=== PATIENT | female | born 1945 | race Caucasian/White ===

== ENCOUNTER 2016-09-11 17:29 | Observation (INO) | payer BC ==
--- NOTE | ~2016-09-11 | HP ---
History And Physical [facility] [id number] [place]. [address] NAME: GOMEZ SANTAMARIA : 43 STATUS : ADM Anna PAT#: [id number] AGE: 70 ADM/REG DATE : 09/11/16 MR#: [id number] REPORT SERV DATE: 09/11/16 DICTATED BY: DATE: REPORT STATUS : Draft TRANSCRIBED BY: MODL DATE: 09/11/16 DATE OF ADMISSION: 09/11/2016 CHIEF COMPLAINT/REASON FOR ADMISSION: Chest pain. HISTORY OF PRESENT ILLNESS: Ms Gomez Santamaria is a very pleasant 70-year-old female who was transferred from [facility] with chest pain. The patient stated that she felt sick, weak, and dizzy on Saturday evening when she was at [employer]ology. She also complained of a heavy pressure-like feeling on her chest of 9/10 in intensity. She states that she went to bed that night, and then Saturday, she spent most of the day in the bed. She tried to get up and do things today earlier when she had an episode where she felt like she might pass out, where her legs became weak. She has had chest pain on and off today. She describes it as a heaviness that radiates across her chest. She states that she vomited twice before coming to the hospital once on Saturday and once last night and had a cramping sensation. She states that her symptoms are better with rest and when she was given nitroglycerin at the [facility], she had improvement of her symptoms. PAST MEDICAL HISTORY: 1. Diabetes mellitus. 2. History of cervical cancer. 3. Hypertension. SOCIAL HISTORY: The patient is . She has a daughter. She does not smoke, drink, or use extracurricular drugs. FAMILY HISTORY: Significant for mom with dropsy and a brother with lung cancer. MEDICATIONS: The patient's outpatient medications are not clear, but are at least: 1. Metformin 500 mg two tablets p.o. twice per day. 2. Glipizide possibly 10 mg. 3. Insulin p.r.n. 4. Lisinopril 20 mg p.o. daily. 5. Omeprazole 20 mg p.o. daily. REVIEW OF SYSTEMS: All systems reviewed and are negative except for dictated in HPI. PHYSICAL EXAMINATION: VITAL SIGNS: On arrival to the outside hospital, the patient's temperature was 98, blood pressure 131/62, pulse of 58, respirations 18, and oxygen saturation 100% on room air. GENERAL: Ms Santamaria is a well-groomed, 70-year-old female. She is currently in no distress. NECK: No jugular venous distention. No carotid bruits. HEART: Regular rate and rhythm. Normal S1 and S2. I could not appreciate murmurs, rubs, or gallops. LUNGS: Clear to auscultation in all alvarez. ABDOMEN: Obese and nontender. I could not auscultate renal bruits. History And Physical [address] [place]. [address] NAME: GOMEZ SANTAMARIA : 43 STATUS : ADM Anna PAT#: [id number] AGE: 70 ADM/REG DATE : 09/11/16 MR#: [id number] REPORT SERV DATE: 09/11/16 DICTATED BY: DATE: REPORT STATUS : Draft TRANSCRIBED BY: MODL DATE: 09/11/16 EXTREMITIES: Warm and well perfused. There are no pitting edema. Femoral pulses are +2 bilaterally. There are no femoral bruits present. DATA: No laboratory data is available yet from our campus. However, the [facility] noted a troponin of 0, a CK of 34, an INR of 1, glucose 224, AST 15, ALT 13, and alkaline phosphatase 77. A chest x-ray showed no evidence of acute cardiopulmonary abnormality. CBC documented a hemoglobin of 13.9, hematocrit of 42.5, and platelet count of 239. Potassium was 4, sodium 136, BUN 14, and creatinine 0.8. IMPRESSION, REPORT, AND PLAN: 1. Chest pain. 2. Hypertension, well controlled. 3. Diabetes mellitus. 4. Gastroesophageal reflux disease. RECOMMENDATIONS: 1. We will rule out acute coronary syndrome via serial cardiac enzymes and EKGs. 2. If the patient does not have evidence of acute coronary syndrome, we will arrange for myocardial perfusion stress testing in the a.m. to rule out ischemia. I do note that the patient had a previous stress test in January of 2016, which demonstrated no ischemia. 3. Check hemoglobin A1c. 4. Insulin sliding scale as needed. 5. Additional recommendations pending clinical course. KRISTEN/JULIAN Kaylene Medina M.D. / [id number] CC: Kaylene Medina M.D.
[2016-09-11] MEDS ORDERED: FORTAMET1000 MG PO (19:01)
[2016-09-11] MEDS ORDERED: NEUR300 PO ×2 (19:01)
[2016-09-11] MEDS ORDERED: GLUCOTRO10 PO (19:02)
[2016-09-11] MEDS ORDERED: BAYER BACK AND BODY PO (19:02)
[2016-09-11] MEDS ORDERED: PRILO PO (19:02)
[2016-09-11] MEDS ORDERED: 8 HOUR650 MG PO (19:03)
[2016-09-11] MEDS ORDERED: LANTUS SC (19:05)
[2016-09-11] MEDS ORDERED: VITAMIN B-121000 MC1 SL (19:05)
[2016-09-11] MEDS ORDERED: VITAMIN D1000 UNI1 PO (19:06)
[2016-09-11] MEDS ORDERED: VITE PO (19:06)
[2016-09-11] MEDS ORDERED: FISH-EPA1000 MG PO (19:06)
[2016-09-11 20:03] LABS: BASOPHILS 0.3 %; BASOPHILS ABSOLUTE 0.02 10/3/uL (0.0-0.16); EOSINOPHILS 1.1 %; EOSINOPHILS ABSOLUTE 0.08 10/3/uL (0.0-0.53); HEMOGLOBIN 13.2 g/dL (12.0-16.0); IMMATURE GRANULOCYTES 0.1 %; IMMATURE GRANULOCYTES ABSOLUTE 0.01 10/3/uL (0.0-0.11); LYMPHOCYTES 23.8 %; LYMPHOCYTES ABSOLUTE 1.71 10/3/uL (0.67-4.30); MEAN CORPUS HGB CONC 33.3 g/dL (32.0-36.0); MEAN CORPUSCULAR HEMOGLOB 28.7 pg (26.0-34.0); MEAN CORPUSCULAR VOLUME 86.1 fL (80-100); MEAN PLATELET VOLUME 10.6 fL (9.2-13.0); MONOCYTES 8.3 %; NEUTROPHILS 66.4 %; NEUTROPHILS ABSOLUTE 4.78 10/3/uL (2.02-8.40); PLATELET COUNT 241 10/3/uL (150-400); RBC DISTRIBUTION WIDTH 13.2 % (12.0-16.0); WHITE BLOOD CELLS 7.2 10/3/uL (4.5-10.5)
[2016-09-11 20:04] LABS: HEMATOCRIT 39.6 % (36.0-48.0); MANUAL DIFF NO %
[2016-09-11 20:12] LABS: INTERNATIONAL NORMAL RATI 1.2 UNITS (-); PARTIAL THROMBO TIME 27.2 SEC (22.5-37.2); PROTIME (NOT ORD) 14.6 SEC (12.0-14.5)
[2016-09-11 20:14] LABS: BUN (BLOOD UREA NITROGEN) 14 MG/DL (6-23); CALCIUM, SERUM 8.6 MG/DL (8.5-10.4); CHLORIDE, SERUM 107 MMOL/L (96-112); CO2 (CARBON DIOXIDE) 24 MMOL/L (24-34); CREATININE 0.92 MG/DL (0.55-1.02); GFR AFRICAN AMERICAN 73 ML/MIN (>=60); GFR NON AFRICAN AMERICAN 63 ML/MIN (>=60); GLUCOSE, SERUM 146 MG/DL (60-99); POTASSIUM, SERUM 3.6 MMOL/L (3.5-5.3); SODIUM, SERUM 142 MMOL/L (135-148); TROPONIN I <0.02 NG/ML (<0.05)
[2016-09-12 03:46] LABS: BASOPHILS 0.4 %; BASOPHILS ABSOLUTE 0.02 10/3/uL (0.0-0.16); EOSINOPHILS 0.7 %; EOSINOPHILS ABSOLUTE 0.04 10/3/uL (0.0-0.53); HEMATOCRIT 39.1 % (36.0-48.0); HEMOGLOBIN 12.6 g/dL (12.0-16.0); LYMPHOCYTES ABSOLUTE 1.18 10/3/uL (0.67-4.30); MEAN CORPUS HGB CONC 32.2 g/dL (32.0-36.0); MEAN CORPUSCULAR HEMOGLOB 27.9 pg (26.0-34.0); MEAN CORPUSCULAR VOLUME 86.5 fL (80-100); MEAN PLATELET VOLUME 10.4 fL (9.2-13.0); MONOCYTES 7.5 %; MONOCYTES ABSOLUTE 0.42 10/3/uL (0.21-1.20); NEUTROPHILS 70.4 %; NEUTROPHILS ABSOLUTE 3.95 10/3/uL (2.02-8.40); PLATELET COUNT 226 10/3/uL (150-400); RBC DISTRIBUTION WIDTH 13.2 % (12.0-16.0); RED CELL COUNT 4.52 10/6/uL (4.0-5.6); WHITE BLOOD CELLS 5.6 10/3/uL (4.5-10.5)
[2016-09-12 03:47] LABS: MANUAL DIFF NO %
[2016-09-12 04:09] LABS: CHOL/HDL RATIO(NOT ORDER) 3.3 (0-5); CHOLESTEROL 122 MG/DL (< 200); HDL CHOLESTEROL 37 MG/DL (> 49); LDL CHOLESTEROL 65 MG/DL (< 130); NON-HDL CHOLESTEROL 85 MG/DL (< 160); SGPT(ALT) 67 U/L (5-65); TRIGLYCERIDE 101 MG/DL (< 150); TROPONIN I <0.02 NG/ML (<0.05)
[2016-09-12 07:59] LABS: POTASSIUM, SERUM 4.6 MMOL/L (3.5-5.3)
[2016-09-12 08:50] LABS: TROPONIN I <0.02 NG/ML (<0.05)
[2016-09-12 13:20] LABS: CHOL/HDL RATIO(NOT ORDER) 3.5 (0-5); CHOLESTEROL 126 MG/DL (< 200); HDL CHOLESTEROL 36 MG/DL (> 49); LDL CHOLESTEROL 67 MG/DL (< 130); NON-HDL CHOLESTEROL 90 MG/DL (< 160); TRIGLYCERIDE 115 MG/DL (< 150)
[2016-09-13 04:13] LABS: BUN (BLOOD UREA NITROGEN) 14 MG/DL (6-23); CALCIUM, SERUM 8.1 MG/DL (8.5-10.4); CHLORIDE, SERUM 108 MMOL/L (96-112); CO2 (CARBON DIOXIDE) 26 MMOL/L (24-34); CPK 31 U/L (0-200); CREATININE 0.87 MG/DL (0.55-1.02); GFR AFRICAN AMERICAN 78 ML/MIN (>=60); GFR NON AFRICAN AMERICAN 67 ML/MIN (>=60); POTASSIUM, SERUM 4.1 MMOL/L (3.5-5.3); SODIUM, SERUM 141 MMOL/L (135-148); TROPONIN I <0.02 NG/ML (<0.05)
[2016-09-13 04:16] LABS: GLUCOSE, SERUM 228 MG/DL (60-99)
[2016-09-13] MEDS ORDERED: ASAB PO (08:56)
[2016-09-13] MEDS ORDERED: LIPITOR40 PO (08:56)
[2016-09-13] MEDS ORDERED: COREG3 PO (08:57)
[2016-09-13] MEDS ORDERED: PRIN20 PO (08:58)
[2016-09-13] MEDS ORDERED: NITROSTAT0.4 MG SL (09:06)
== END 2016-09-13 12:01 | disposition home or self-care (01) ==
LOC: CDU2 17:29
PROVIDERS: Internal Medicine; Internal Medicine Cardiovascular Disease
DX: I25.110 Atherosclerotic heart disease of native coronary artery with unstable angina pectoris (principal); E11.9 Type 2 diabetes mellitus without complications; I10 Essential (primary) hypertension; K21.9 Gastro-esophageal reflux disease without esophagitis; E78.00 Pure hypercholesterolemia, unspecified; Z80.1 Family history of malignant neoplasm of trachea, bronchus and lung; Z79.4 Long term (current) use of insulin; Z79.899 Other long term (current) drug therapy; Z88.8 Allergy status to other drugs, medicaments and biological substances; Z90.49 Acquired absence of other specified parts of digestive tract
CPT/HCPCS: 71010; 78452; 80048; 80061; 82550; 82553; 82962; 83036; 83735; 84132; 84460; 84484; 85025; 85610; 85730; 93005; 93017; 93306; 93458; 96374; 96375; 96376; 99152; 99153; A9270-GY; A9502; C1769; C1887; C1894; G0378; J2250; J2405; J3010; Q9967